=== PATIENT | female | born 1945 | race Caucasian/White ===

== ENCOUNTER 2018-06-29 14:04 | Inpatient (IN) | payer MEDICARE, OTHER ==
[2018-06-29] MEDS: SODIUM CHLORIDE 0.9% 1L BAG IV* ×2 (14:59→16:00)
[2018-06-29 15:08] LABS: ADD MAN DIFF? NO
[2018-06-29 15:09] LABS: WHITE BLOOD COUNT 9.5 10^3/ul (4.8-10.8)
[2018-06-29 15:09] LABS: BASOPHIL # 0.1 10^3/ul (0.0-0.1); BASOPHILS % 0.6 % (0.0-2.0); EOSINOPHILS # 0.4 10^3/ul (0.0-0.5); EOSINOPHILS % 3.9 % (0.0-7.0); HEMATOCRIT 31.9 % (37.0-47.0); HEMOGLOBIN 9.8 g/dl (12.0-16.0); LYMPHOCYTES # 1.2 10^3/ul (0.8-2.9); LYMPHOCYTES % 12.3 % (15.0-51.0); MEAN CORPUSCULAR HEMOGLOBIN 24.2 pg (29.0-33.0); MEAN CORPUSCULAR HGB CONC 30.7 g/dl (32.0-37.0); MEAN CORPUSCULAR VOLUME 78.8 fl (82.0-101.0); MEAN PLATELET VOLUME 9.2 fl (7.4-10.4); MONOCYTE # 0.7 10^3/ul (0.3-0.9); MONOCYTES % 7.7 % (0.0-11.0); NEUTROPHIL # 7.1 10^3/ul (1.6-7.5); NEUTROPHILS % 74.9 % (39.0-77.0); PLATELET COUNT 316 10^3/UL (140-415); RED BLOOD COUNT 4.05 10^6/ul (4.20-5.40)
[2018-06-29 15:13] LABS: INR 0.99; PROTIME 13.2 Sec (11.9-14.9)
[2018-06-29 15:16] LABS: ALANINE AMINOTRANSFERASE 46 IU/L (13-69); ALBUMIN 3.9 g/dl (3.3-4.9); ALKALINE PHOSPHATASE 87 IU/L (42-121); ANION GAP 9 (5-13); ASPARTATE AMINO TRANSFERASE 33 IU/L (15-46); BILIRUBIN,INDIRECT 0.3 mg/dl (0-1.1); BILIRUBIN,TOTAL 0.3 mg/dl (0.2-1.3); BLOOD UREA NITROGEN 21 mg/dl (7-20); CALCIUM 8.9 mg/dl (8.4-10.2); CARBON DIOXIDE 26 mmol/L (21-31); CHLORIDE 105 mmol/L (97-110); CREATININE 0.85 mg/dl (0.44-1.00); GLUCOSE 124 mg/dl (70-220); POTASSIUM 4.3 mmol/L (3.5-5.1); SODIUM 140 mmol/L (135-144); TOTAL PROTEIN 6.9 g/dl (6.1-8.1)
[2018-06-29 15:18] LABS: PARTIAL THROMBOPLASTIN TIME 36.3 Sec (23.0-35.0)
[2018-06-29 15:24] LABS: B-TYPE NATRIURETIC PEPTIDE 3070 PG/ML (0-125)
[2018-06-29 15:28] LABS: TROPONIN-I 0.053 ng/ml (0.000-0.120)
[2018-06-29 15:31] LABS: AADO2 Arterial 58.7 mmHg (7.0-24.0); Allen Test ACCEPTAB; Arterial Blood Gas Oxygen Sat 95.5 mmHG (95.0-100.0); Arterial COHb 0.5 % (0.0-3.0); Arterial Fraction of Oxyhgb 94.9 % (93.0-99.0); Arterial HCO3 28.2 mmol/L (22.0-26.0); Arterial MetHb 0.1 % (0.0-1.5); Arterial Total Hemglobin 10.4 g/dl (12.0-18.0); Arterial pCO2 40.6 mmhg (35-45); MODE NASAL CANNULA; Site Left Radial
[2018-06-29 15:50] LABS: DIGOXIN < 0.4 ng/ml (1.0-2.0)
[2018-06-29] MEDS: FUROSEMIDE 40 MG INJ IV ×2 (16:24→20:48)
[2018-06-29 16:32] LABS: ADD UMIC YES; UR ASCORBIC ACID NEGATIVE (NEGATIVE); UR BACTERIA MODERATE /HPF (NONE SEEN); UR BILIRUBIN (Dip) NEGATIVE (NEGATIVE); UR BLOOD (Dip) NEGATIVE (NEGATIVE); UR CLARITY CLEAR (CLEAR); UR COLOR YELLOW (YELLOW); UR GLUCOSE (Dip) NEGATIVE (NEGATIVE); UR KETONES (Dip) NEGATIVE (NEGATIVE); UR LEUKOCYTE ESTERASE (Dip) 1+ Leu/ul (NEGATIVE); UR MUCUS FEW /HPF (NONE SEEN); UR NITRITE (Dip) POSITIVE (NEGATIVE); UR RBC 2 /HPF (0-5); UR SPECIFIC GRAVITY (Dip) 1.011 (1.003-1.030); UR TOTAL PROTEIN (Dip) 1+ mg/dl (NEGATIVE); UR UROBILINOGEN (Dip) NEGATIVE (NEGATIVE); UR WBC 7 /HPF (0-5)
[2018-06-29] MEDS: CEFTRIAXONE 1 GM/50 ML (PMX) 50 ML IVPB (17:43)
[2018-06-29] MEDS ORDERED: NACL 0.9% 3 ML SYG IV (18:30)
[2018-06-29] MEDS ORDERED: ONDANSETRON 4 MG INJ IV (18:30)
[2018-06-29 19:37] LABS: LACTIC ACID 0.9 mmol/L (0.5-2.0)
[2018-06-29] MEDS ORDERED: GLUCAGON 1 MG INJ IM (20:00)
[2018-06-29] MEDS ORDERED: DEXTROSE 50% 50 ML SYRINGE IV ×2 (20:00)
[2018-06-29] MEDS ORDERED: GLUCOSE GEL 15 GRAM TUBE PO ×2 (20:00)
[2018-06-29] MEDS ORDERED: GLUCOSE GEL 15 GRAM TUBE BUCCAL (20:00)
[2018-06-29] MEDS ORDERED: NON-FORMULARY/PATIENT OWN MED (Pravastatin Sodium* 40 MG) PO (21:00)
[2018-06-29] MEDS ORDERED: HEPARIN 5,000 UNIT/0.5 ML VIAL (21:59)
[2018-06-29] MEDS: LABETALOL 200 MG TAB PO (22:16)
[2018-06-29] MEDS: HEPARIN 5,000 UNIT/1 ML VIAL SC (22:23)
[2018-06-29] MEDS: ACETAMINOPHEN 325 MG TAB PO (23:43)
[2018-06-30] MEDS: ACCU-CHEK XX (02:00)
[2018-06-30] MEDS ORDERED: HEPARIN 5,000 UNIT/0.5 ML VIAL (05:45)
[2018-06-30 06:08] LABS: ADD MAN DIFF? NO
[2018-06-30 06:09] LABS: BASOPHIL # 0.1 10^3/ul (0.0-0.1); BASOPHILS % 0.7 % (0.0-2.0); EOSINOPHILS # 0.3 10^3/ul (0.0-0.5); EOSINOPHILS % 3.3 % (0.0-7.0); HEMATOCRIT 33.3 % (37.0-47.0); HEMOGLOBIN 10.2 g/dl (12.0-16.0); LYMPHOCYTES # 1.1 10^3/ul (0.8-2.9); LYMPHOCYTES % 13.9 % (15.0-51.0); MEAN CORPUSCULAR HEMOGLOBIN 23.7 pg (29.0-33.0); MEAN CORPUSCULAR HGB CONC 30.6 g/dl (32.0-37.0); MEAN CORPUSCULAR VOLUME 77.4 fl (82.0-101.0); MONOCYTE # 0.9 10^3/ul (0.3-0.9); MONOCYTES % 10.4 % (0.0-11.0); NEUTROPHIL # 5.8 10^3/ul (1.6-7.5); PLATELET COUNT 332 10^3/UL (140-415); RED CELL DISTRIBUTION WIDTH 15.9 % (11.5-14.5)
[2018-06-30 06:09] LABS: WHITE BLOOD COUNT 8.2 10^3/ul (4.8-10.8)
[2018-06-30 06:24] LABS: HEMOGLOBIN A1C 6.4 % (0-5.9)
[2018-06-30 06:38] LABS: ALANINE AMINOTRANSFERASE 41 IU/L (13-69); ALBUMIN 3.8 g/dl (3.3-4.9); ALBUMIN/GLOBULIN RATIO 1.65; ALKALINE PHOSPHATASE 77 IU/L (42-121); ANION GAP 10 (5-13); ASPARTATE AMINO TRANSFERASE 32 IU/L (15-46); BILIRUBIN,INDIRECT 0.3 mg/dl (0-1.1); BILIRUBIN,TOTAL 0.3 mg/dl (0.2-1.3); BLOOD UREA NITROGEN 26 mg/dl (7-20); CALCIUM 9.2 mg/dl (8.4-10.2); CARBON DIOXIDE 30 mmol/L (21-31); CHLORIDE 103 mmol/L (97-110); CHOL/HDL RATIO 2.1 RATIO; CHOLESTEROL 90 mg/dl (100-200); CREATININE 0.88 mg/dl (0.44-1.00); GLUCOSE 63 mg/dl (70-220); HDL CHOLESTEROL 42 mg/dl (33-92); LDL CHOLESTEROL,CALCULATED 37 mg/dl; MAGNESIUM 1.8 mg/dl (1.7-2.5); POTASSIUM 3.5 mmol/L (3.5-5.1); SODIUM 143 mmol/L (135-144); TOTAL PROTEIN 6.1 g/dl (6.1-8.1); TRIGLYCERIDES 56 mg/dl (0-149)
[2018-06-30 06:50] LABS: FREE THYROXINE INDEX (Calc) 2.78 ug/ml (0.65-3.89); T3 UPTAKE 35.6 % (23.5-40.5); T4 (THYROXINE) 7.8 ug/dl (5.5-11.0)
[2018-06-30] MEDS: FUROSEMIDE 40 MG INJ IV (07:19)
[2018-06-30] MEDS: HEPARIN 5,000 UNIT/1 ML VIAL SC ×2 (07:28→14:00)
[2018-06-30] MEDS ORDERED: INSULIN ASPART [NOVOLOG] 3 ML PEN SC ×2 (08:00)
[2018-06-30] MEDS ORDERED: INSULIN GLARGINE [LANTus] (100 UNITS/ML) SYG SC (08:00)
[2018-06-30] MEDS ORDERED: AZILSARTAN MEDOXOMIL 80 MG PO (09:00)
[2018-06-30] MEDS: GABAPENTIN 400 MG CAP PO (09:25)
[2018-06-30] MEDS: DULOXETINE 30 MG CAP DR PO (09:25)
[2018-06-30] MEDS: ISOSORBIDE MONONITRATE(SR)60 MG TAB PO (09:25)
[2018-06-30] MEDS: LABETALOL 200 MG TAB PO (09:25)
[2018-06-30] MEDS: ASPIRIN (EC) 81 MG TAB PO (09:25)
[2018-06-30] MEDS ORDERED: ATORVASTATIN 10 MG TAB PO (21:00)
== END 2018-06-30 14:58 | disposition home or self-care (01) | DRG 292 ==
LOC: E/R 14:04 → 6WM 17:33
DX: I11.0 Hypertensive heart disease with heart failure (principal); N39.0 Urinary tract infection, site not specified; I50.9 Heart failure, unspecified; E11.9 Type 2 diabetes mellitus without complications; I48.91 Unspecified atrial fibrillation; E78.5 Hyperlipidemia, unspecified; B96.20 Unspecified Escherichia coli [E. coli] as the cause of diseases classified elsewhere; Z79.4 Long term (current) use of insulin
CPT/HCPCS: 36415; 36600; 71045; 80053; 80061; 80162; 81001; 82803; 82962; 83036; 83605; 83735; 83880; 84100; 84436; 84443; 84479; 84484; 85025; 85610; 85730; 87040; 87086; 93005; 96374; 99291-25